=== PATIENT | female | born 1950 | race Caucasian/White ===

== ENCOUNTER → 2017-07-30 | Day surgery (SDC) | payer MEDICARE ==
[~2017-07-30] MED LIST: ATEN50TA PO; CALCTAB33 PO; CITA10TA4 PO; CYCL10TA PO; HYDR200T3 PO; LORA-474 PO; LOSA100T PO; MULTTAB67 PO; OXYC-395 PO; PRAM1TAB PO; PROPOFOL 200 MG/20 ML AMP IV ONE; SODIUM CHLORIDE 0.9% 250 ML ADDBAG IV ONE; SPIR50TA PO; TEMA15CA PO; ZINC50TA PO
== END | disposition home or self-care (01) ==
LOC: ESDC 07:41
PROVIDERS: ATTEND Internal Medicine Gastroenterology
DX: K29.70 Gastritis, unspecified, without bleeding (principal); K20.9 Esophagitis, unspecified; E66.01 Morbid (severe) obesity due to excess calories
CPT/HCPCS: 00731; 43239; 88305; 88312; J3010

== ENCOUNTER 2017-09-26 07:38 | Inpatient (IN) | payer MEDICARE ==
[~2017-09-26] VITALS: Ht 157.5 cm; Wt 117.8 kg
[~2017-09-26 07:38] MED LIST changes: -CYCL10TA PO; +HYDR-3580 PO; -HYDR200T3 PO; -OXYC-395 PO; -PROPOFOL 200 MG/20 ML AMP IV ONE; -SODIUM CHLORIDE 0.9% 250 ML ADDBAG IV ONE; -TEMA15CA PO; +TIZA4CAP3 PO; -ZINC50TA PO
[2017-09-26] MEDS ORDERED: LACTATED RINGER'S 1000 ML IV PRN (08:45)
[2017-09-26] MEDS ORDERED: APREPITANT 40 MG CAP PO SCH (08:45)
[2017-09-26] MEDS ORDERED: CHLORHEXIDINE GLUCONATE 2 % 1 PACK (2 CLOTHS) TOPICAL PRN (08:45)
[2017-09-26] MEDS ORDERED: POVIDONE IODINE 5% (ANTISEPSIS KIT) 4 APPLICATIONS EACH NARE PRN (08:45)
[2017-09-26] MEDS ORDERED: ACETAMINOPHEN 1000 MG/100 ML 100 ML IV SCH (08:45)
[2017-09-26] MEDS ORDERED: SODIUM CHLORID 0.9% 500 ML IV PRN (08:45)
[2017-09-26] MEDS ORDERED: ONDANSETRON HCL 4 MG/2 ML VIAL IV PUSH SCH (08:45)
[2017-09-26] MEDS ORDERED: METOPROLOL TARTRATE 25 MG TAB PO PRN (08:45)
[2017-09-26] MEDS ORDERED: VITA100018 PO (10:28)
[2017-09-26] MEDS ORDERED: LACTATED RINGER'S 1000 ML INJ 1,000 ML IV ONE (12:00)
[2017-09-26] MEDS ORDERED: NEOSTIGMINE 5 MG/5 ML SYRINGE IV PUSH ONE (12:00)
[2017-09-26] MEDS ORDERED: PROPOFOL 200 MG/20 ML AMP IV ONE (12:00)
[2017-09-26] MEDS ORDERED: DEXAMETHASONE SOD PHOS 4 MG/ML VIAL IV ONE (12:00)
[2017-09-26] MEDS ORDERED: ePHEDrine/NS 25 MG/5 ML SYRINGE IV ONE (12:00)
[2017-09-26] MEDS ORDERED: LIDOCAINE HCL 1% PF 5 ML SYRINGE OTHER ONE (12:00)
[2017-09-26] MEDS ORDERED: GLYCOPYRROLATE 1 MG/5 ML SYRINGE IV PUSH ONE (12:00)
[2017-09-26] MEDS ORDERED: ROCURONIUM INJ 50 MG/5 ML SYRINGE IV PUSH ONE (12:00)
[2017-09-26] MEDS ORDERED: ONDANSETRON HCL 4 MG/2 ML VIAL IV ONE (12:00)
[2017-09-26] MEDS ORDERED: ceFAZolin INJ 1,000 MG VIAL ONE (13:20)
[2017-09-26] MEDS ORDERED: BUPIVACAINE/EPINEPHRINE 0.25% 50 ML VIAL ONE (13:21)
[2017-09-26] MEDS ORDERED: METHYLENE BLUE 10 MG/ML VIAL ONE (15:16)
[2017-09-26] MEDS ORDERED: NALOXONE HCL 0.4 MG/ML AMP IV PUSH PRN (16:00)
[2017-09-26] MEDS ORDERED: diphenhydrAMINE HCL 50 MG/ML VIAL IV PUSH PRN (16:00)
[2017-09-26] MEDS ORDERED: SODIUM CHLORIDE 0.9% FLUSH 10 ML FLUSH IV FLUSH PRN (16:00)
[2017-09-26] MEDS ORDERED: Post-op Orders (for Pharmacy) OTHER ONE (16:00)
[2017-09-26] MEDS ORDERED: ACETAMINOPHEN 325MG/HYDROcodone 7.5MG/15ML UDC PO PRN ×2 (16:00)
[2017-09-26] MEDS ORDERED: ONDANSETRON HCL 4 MG/2 ML VIAL IV PUSH PRN (16:00)
[2017-09-26] MEDS ORDERED: diphenhydrAMINE HCL ELIXIR 12.5 MG/5 ML CUP PO PRN (16:00)
[2017-09-26] MEDS ORDERED: ENALAPRILAT 1.25 MG/ML VIAL IV PUSH PRN (16:00)
[2017-09-26] MEDS ORDERED: MIDAZOLAM HCL 2 MG/2 ML VIAL ONE (16:21)
[2017-09-26] MEDS ORDERED: *morphine SULFATE 4 MG/ML PERIprocedure ONLY ONE (16:21)
[2017-09-26] MEDS ORDERED: MORPHINE SULFATE 30 MG/30 ML PCA IV SCH (17:00)
[2017-09-26] MEDS: 1/2 NS + KCL 20 MEQ INJ 1,000 ML IV SCH (17:00)
[2017-09-26] MEDS: METOCLOPRAMIDE HCL 10 MG/2 ML VIAL IV PUSH SCH ×2 (17:00→23:14)
[2017-09-26] MEDS ORDERED: DO NOT ADM ANY ANTICOAGULANT DRUGS PRN (17:15)
[2017-09-26] MEDS: ACETAMINOPHEN 1000 MG/100 ML 100 ML IV SCH ×2 (18:42→23:14)
[2017-09-26] MEDS: PCA - TOTAL MG MORPHINE DELIVERED PER SHIFT SCH (19:29)
[2017-09-26] MEDS: SODIUM CHLORIDE 0.9% FLUSH 10 ML FLUSH IV FLUSH SCH (19:29)
[2017-09-26] MEDS: ENOXAPARIN SODIUM 40 MG/0.4 ML SYRINGE SQ SCH (19:29)
[2017-09-26 20:00] VITALS: BP 158/74; PULSE 55; RESP 18; TEMP 97.9; O2SAT 94
[2017-09-27] VITALS (7 sets, daily range): BP systolic 141–176; BP diastolic 60–90; PULSE 51–64; RESP 16–18; TEMP 97–98.3; O2SAT 90–97
[2017-09-27] MEDS: 1/2 NS + KCL 20 MEQ INJ 1,000 ML IV SCH ×4 (04:12→21:35)
[2017-09-27] MEDS: METOCLOPRAMIDE HCL 10 MG/2 ML VIAL IV PUSH SCH ×2 (04:13→11:16)
[2017-09-27] MEDS: PCA - TOTAL MG MORPHINE DELIVERED PER SHIFT SCH (06:00)
[2017-09-27 06:05] LABS: AUTOMATED NEUTROPHIL # 9.1 TH/MM3 (1.8-7.7); BASOPHIL % 0.3 % (0.0-2.0); EOSINOPHIL % 0.1 % (0.0-4.0); HEMOGLOBIN 13.8 GM/DL (11.6-15.3); LYMPH % 9.7 % (9.0-44.0); MEAN CELL VOLUME 86.7 FL (80.0-100.0); MEAN CORPUSCULAR HEMOGLOBIN 29.2 PG (27.0-34.0); MEAN CORPUSCULAR HGB CONC 33.6 % (32.0-36.0); MEAN PLATELET VOLUME 8.2 FL (7.0-11.0); MONO % 4.2 % (0.0-8.0); MONOCYTE # 0.4 TH/MM3 (0-0.9); NEUT % 85.7 % (16.0-70.0); PLATELET COUNT 242 TH/MM3 (150-450); RED BLOOD COUNT 4.73 MIL/MM3 (4.00-5.30); RED CELL DISTRIBUTION WIDTH 15.7 % (11.6-17.2); WHITE BLOOD COUNT 10.6 TH/MM3 (4.0-11.0)
[2017-09-27] MEDS: ACETAMINOPHEN 1000 MG/100 ML 100 ML IV SCH ×2 (06:17→11:15)
[2017-09-27 06:37] LABS: BICARBONATE 25.2 MEQ/L (21.0-32.0); CALCIUM 9.2 MG/DL (8.5-10.1); CREATININE 0.83 MG/DL (0.50-1.00); MAGNESIUM 2.2 MG/DL (1.5-2.5)
[2017-09-27] MEDS: PANTOPRAZOLE SOD 40 MG DELAYED RELEASE TAB PO SCH (09:05)
[2017-09-27] MEDS: SODIUM CHLORIDE 0.9% FLUSH 10 ML FLUSH IV FLUSH SCH ×2 (09:05→21:00)
[2017-09-27] MEDS ORDERED: PILL SPLITTER OTHER PRN (09:30)
[2017-09-27] MEDS: CITALOPRAM HYDROBROMIDE 20 MG TAB PO SCH (11:15)
[2017-09-27] MEDS: LOSARTAN 50 MG TAB PO SCH (11:15)
--- NOTE | 2017-09-27 15:39 | HHI.PR ---
Subjective Subjective Notes Doing well, has excellent pain control. No GI complaints, tolerating PO intake Objective Vitals/I&O Vital Signs Date Time Temp Pulse Resp B/P (MAP) Pulse Ox O2 Delivery O2 Flow Rate FiO2 09/27/17 12:00 98.2 51 17 168/73 (104) 92 09/27/17 08:46 21 09/26/17 17:40 Nasal Cannula 2 Labs Laboratory Tests Test 09/27/17 04:18 White Blood Count 10.6 Red Blood Count 4.73 Hemoglobin 13.8 Hematocrit 41.0 Mean Corpuscular Volume 86.7 Mean Corpuscular Hemoglobin 29.2 Mean Corpuscular Hemoglobin Concent 33.6 Red Cell Distribution Width 15.7 Platelet Count 242 Mean Platelet Volume 8.2 Neutrophils (%) (Auto) 85.7 Lymphocytes (%) (Auto) 9.7 Monocytes (%) (Auto) 4.2 Eosinophils (%) (Auto) 0.1 Basophils (%) (Auto) 0.3 Neutrophils # (Auto) 9.1 Lymphocytes # (Auto) 1.0 Monocytes # (Auto) 0.4 Eosinophils # (Auto) 0.0 Basophils # (Auto) 0.0 CBC Comment DIFF FINAL Differential Comment Blood Urea Nitrogen 13 Creatinine 0.83 Random Glucose 112 Calcium Level 9.2 Magnesium Level 2.2 Sodium Level 137 Potassium Level 4.2 Chloride Level 104 Carbon Dioxide Level 25.2 Anion Gap 8 Estimat Glomerular Filtration Rate 69 Cardiovascular: Regular Lungs: Clear Abdomen: Post-op tenderness Extremities: Perfused Wound Wound : Wound Location: Abdomen Appearance: Clean & Dry A/P Assessment and Plan 66yo F POD#1 laparoscopic VSG -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
[2017-09-27] MEDS ORDERED: METOCLOPRAMIDE HCL 10 MG/2 ML VIAL IV PUSH PRN (17:00)
[2017-09-27] MEDS: ENOXAPARIN SODIUM 40 MG/0.4 ML SYRINGE SQ SCH (20:00)
[2017-09-27] MEDS ORDERED: PRAMIPEXOLE DIHYDROCHLORIDE 1 MG TAB PO SCH (21:00)
[2017-09-28] VITALS: BP 123/56; PULSE 59; RESP 18; TEMP 97.7; O2SAT 94
[2017-09-28] MEDS: 1/2 NS + KCL 20 MEQ INJ 1,000 ML IV SCH (05:50)
[2017-09-28 08:00] VITALS: BP 143/65; PULSE 59; RESP 16; TEMP 97.7; O2SAT 90
[2017-09-28] MEDS: SODIUM CHLORIDE 0.9% FLUSH 10 ML FLUSH IV FLUSH SCH (09:00)
[2017-09-28] MEDS: CITALOPRAM HYDROBROMIDE 20 MG TAB PO SCH (09:59)
[2017-09-28] MEDS: PANTOPRAZOLE SOD 40 MG DELAYED RELEASE TAB PO SCH (09:59)
[2017-09-28] MEDS: LOSARTAN 50 MG TAB PO SCH (09:59)
--- NOTE | 2017-09-28 13:32 | HHI.PR ---
Subjective Subjective Notes Continues to do well Objective Vitals/I&O Vital Signs Date Time Temp Pulse Resp B/P (MAP) Pulse Ox O2 Delivery O2 Flow Rate FiO2 09/28/17 08:00 97.7 59 16 143/65 (91) 90 09/27/17 08:46 21 09/26/17 17:40 Nasal Cannula 2 Abdomen: Post-op tenderness Extremities: Perfused Wound Wound : Wound Location: Abdomen Appearance: Clean & Dry A/P Assessment and Plan 66yo F POD#2 laparoscopic VSG -Continue with frequent ambulation -Continue to increase fluids as tolerated Discharge Planning D/C home today Donald Livingston Sep 28, 2017 13:32
--- NOTE | 2017-10-02 19:15 | MP ---
cc: Campbell Cheek MD DATE OF OPERATION: 09/26/2017 DATE OF PROCEDURE: 09/26/2017 PREOPERATIVE DIAGNOSES: Morbid obesity with a body mass index of 47, complicated by essential hypertension. POSTOPERATIVE DIAGNOSES: Morbid obesity with a body mass index of 47, complicated by essential hypertension. PROCEDURES PERFORMED: 1. Laparoscopic vertical sleeve gastrectomy over a 36-Cymro ViSiGi Bougie. 2. Extensive lysis of adhesions. SURGEON: Campbell Cheek MD ANESTHESIA: General endotracheal anesthesia. ESTIMATED BLOOD LOSS: Scant. FINDINGS: Extensive adhesions of omentum and small bowel to the abdominal wall. The patient has adhesions of her small bowel that are densely adherent in the right lower quadrant. These adhesions were left in place as it did not inhibit our site for our primary operation. COMPLICATIONS: None. DESCRIPTION OF PROCEDURE: The patient was brought to the operating room, and placed on the operating table in supine position. Bilateral sequential inflation devices placed on lower extremities. General anesthesia instituted and antibiotics initiated. The abdomen was prepped and draped sterilely. A point in the left upper quadrant was anesthetized with 0.25% Marcaine with epinephrine. Skin incision was made, 5 mm Optiview port placed under direct vision and a pneumoperitoneum created. Another clear space identified in the left upper quadrant, a 5 mm port placed in this region. There were adhesions going across the midline. Blunt and sharp adhesiolysis was undertaken. Once the midline was cleared, an additional 5 mm port site was placed approximately 15 mm distal to the xiphoid. Dissection was continued on the right side. There was small bowel and omentum adhesed in this region. Using sharp and blunt dissection and care not to injure the bowel, these adhesions were taken down. Some adhesions were left in place in the right lower quadrant. Once the upper abdomen was cleared, there was good visualization of the stomach. A 15 mm port was placed in the right upper quadrant and a 5 mm port placed in the right upper quadrant and a gastric sleeve procedure was started. The left lobe of the liver was retracted. The vasculature along the greater curvature of the stomach was using harmonic scalpel starting a distance 5-cm proximal to the pylorus and carried towards the angle of His. The angle of His was taken down bluntly. Posterior ligamentous attachments were sharply . A 36-Cymro ViSiGi bougie was placed at the start of the case, was placed on suction. Division of the stomach started 5 cm proximal to the pylorus and carried towards the angle of His to completely excise approximately 80% of the stomach. This was performed using an Haystack Flex stapler at the pylorus. The first firing was with a black load, followed by a green load and four gold loads. All staple loads were reinforced with SeamGuard. A distance of 2 cm was left from the angle incisura and the staple line and a distance of 1 cm left from the GE junction and the staple line. The pylorus was then occluded, methylene blue tinged saline was instilled. There was no evidence of extravasation. Bleeding points were controlled with Evicel. The excised stomach was removed from the peritoneal cavity through the 15-mm port site in an Endopouch. The fascia at the 15-mm port site was approximated with 0 Vicryl suture. The CO2 was then released, all ports were removed, all skin incisions closed with 4-0 Monocryl. The abdominal wall was cleaned. A sterile dressing was placed. The patient was awakened and taken to the recovery room. MD TAMARA Meza/LUIS , 06:51 PM , 07:14 PM [email or web address]
== END 2017-09-28 15:07 | disposition home or self-care (01) | DRG 621 ==
LOC: HSDI 07:38 → N07A 17:55
PROVIDERS: ADMIT Surgery; ATTEND Surgery
PROC: 0DNW4ZZ Release Peritoneum, Percutaneous Endoscopic Approach (ICD-10-PCS; 2017-09-26)
PROC: 0DB64Z3 Excision of Stomach, Percutaneous Endoscopic Approach, Vertical (ICD-10-PCS; principal; 2017-09-26 13:47)
DX: E66.01 Morbid (severe) obesity due to excess calories (principal); I10 Essential (primary) hypertension; Z68.42 Body mass index [BMI] 45.0-49.9, adult; K66.0 Peritoneal adhesions (postprocedural) (postinfection); I70.0 Atherosclerosis of aorta
CPT/HCPCS: 80048; 83735; 85025; 94150; J0131; J0690; J1100; J1650; J2250; J2270; J2405; J2710; J2765; J3010; J7120; J8501